=== PATIENT | male | born 1995 | race Caucasian/White ===

== ENCOUNTER 2016-12-17 12:24 | Emergency (ER) | payer MEDICAID, OTHER ==
[~2016-12-17] VITALS: Ht 172.7 cm; Wt 68.0 kg
[2016-12-17 12:37] VITALS: Ht 172.7 cm; Wt 68.0 kg
[2016-12-17 14:32] LABS: URINE BLOOD (Dip) POC Negative (NEGATIVE)
--- NOTE | 2016-12-17 14:53 | RADRPT ---
PROCEDURE: US Scrotum. CLINICAL INDICATION: Scrotal pain. TECHNIQUE: Multiple sonographic images of the scrotal region were obtained utilizing a linear arra y transducer with grayscale and color-flow and pulsed Doppler imaging. The images were reviewed on a high-resolution PACS workstation. COMPARISON: No prior studies are available for comparison. FINDINGS: The right testis measures 5 cm. The left testis measures 5 cm. There is no intratesticular mass. There are small benign right epididymal cysts measuring 0.1 cm and 0.2 cm. The epididymi are otherw ise normal. There is normal flow to both testes demonstrated with color Doppler and pulsed Doppler sonography. There is no hydrocele. There is no varicocele. The scrotal wall is unremarkable. The inguinal regions are normal with no mass or hernia. IMPRESSION: 1. Small benign right epididymal cysts. 2. Otherwise normal scrotal ultrasound. RPTAT: QQ .Mike Suarez MD, MD Date Time Electronically viewed and signed by .Mike Suarez MD, on 12/17/2016 14:52 .R/
[2016-12-17] MEDS ORDERED: IBUP-1542 PO (14:57)
--- NOTE | 2016-12-17 14:59 | ERD ---
ER Documentation Chief Complaint Date/Time DATE: 12/17/16 TIME: 14:58 Chief Complaint PAIN ON RIGHT TESTICLE X 2 WEEKS S/P RIGHT TESTICULAR SURGERY IN [facility] HPI This 21-year-old male presents since with right testicle pain for last 2 weeks. He gives a history of having some type of testicular surgery in [facility] 2 weeks ago. Review of the [place] discharge paperwork shows diagnoses of chronic epididymitis, epididymal cyst and hydrocele. He has no fevers, difficulty urinating, swelling or redness. ROS All systems reviewed and are negative except as per history of present illness. Medications Home Meds Active Scripts Ibuprofen* (Motrin*) 600 Mg Tab, 600 MG PO Q6, #20 TAB Prov:TIFFANIE ACKERMAN MD 12/17/16 Allergies Allergies: Coded Allergies: No Known Allergy (Unverified , 12/17/16) PMhx/Soc Medical and Surgical Hx: pt denies Medical Hx History of Surgery: Yes (RIGHT TESTICLE) Physical Exam Vitals Vital Signs Date Time Temp Pulse Resp B/P Pulse Ox O2 Delivery O2 Flow Rate FiO2 12/17/16 12:37 99.6 71 18 150/71 99 Physical Exam Const: [] Alert, [id number] per Head: Atraumatic Eyes: Normal Conjunctiva ENT: Normal External Ears, Nose and Mouth. Neck: Full range of motion..~ No meningismus. Resp: Clear to auscultation bilaterally Cardio: Regular rate and rhythm, no murmurs Abd: Soft, non tender, non distended. Normal bowel sounds. Genital exam shows nontender descended testicles bilaterally without significant swelling. There is a healed surgical site in the right inguinal area. No penile discharge or blood at the meatus. There is no warmth, redness, induration Skin: No petechiae or rashes Back: No midline or flank tenderness Ext: No cyanosis, or edema Neur: Awake and alert Psych: Normal Mood and Affect Results 24 hrs Laboratory Tests Test 12/17/16 14:32 Bedside Urine pH (LAB) 7.0 Bedside Urine Protein (LAB) Negative Bedside Urine Glucose (UA) Negative Bedside Urine Ketones (LAB) Negative Bedside Urine Blood Negative Bedside Urine Nitrite (LAB) Negative Bedside Urine Leukocyte Esterase (L Negative Procedures/MDM Urine is negative for blood, leukocytes, nitrates, glucose. Scrotal ultrasound shows small epididymal cyst without acute findings and no evidence of torsion, epididymitis, abscess. Patient presents with postop pain of the right hemiscrotum without any acute findings and no evidence of infection, torsion, UTI, additional complications. We will treat with ibuprofen and further observation at home. The patient was stable with no new complaints during the ER course. Clinically, there is no current evidence to suggest meningitis, sepsis, acute abdomen, pneumonia, acute coronary syndrome, pulmonary embolism, or any other emergent condition appearing to require further evaluation or hospitalization. The patient should certainly return for any new or worsening symptoms per the aftercare instructions. They should otherwise follow-up with her primary care doctor for reevaluation this week. Departure Diagnosis: Primary Impression: Post-op pain Condition: Stable Patient Instructions: Post Op Wound Check, Pain Additional Instructions: Examines normal hoy. Cheque otro vez con miller doctor primario en el proximo jernigan or regresa para mas o nueva simptomas- LAVERNE GOODMAN. TIFFANIE ACKERMAN MD Dec 17, 2016 14:59
== END 2016-12-17 15:18 | disposition home or self-care (01) ==
LOC: FTE 12:24
DX: G89.18 Other acute postprocedural pain (principal); N50.811 Right testicular pain
CPT/HCPCS: 76870; 81003; Z7502

== ENCOUNTER 2017-10-13 11:03 | Emergency (ER) | END 2017-10-13 13:49 | disposition home or self-care (01) ==

== ENCOUNTER 2018-02-13 09:53 | Day surgery (SDC) | END 2018-02-13 13:10 | disposition home or self-care (01) ==

== ENCOUNTER → 2018-05-08 | Outpatient (CLI) | END | disposition home or self-care (01) ==

== ENCOUNTER 2018-06-22 10:40 | Emergency (ER) | END 2018-06-22 11:36 | disposition home or self-care (01) ==